=== PATIENT | female | born 1985 | race African-American/Black ===

== ENCOUNTER 2024-06-06 03:20 | Inpatient (IN) | payer SELFPAY ==
[2024-06-06 03:29] VITALS: BMI 47.7
[2024-06-06] MEDS: HYDROmorphone HCl 2 MG/ML VIAL IM ONE ×4 (04:20→12:59)
[2024-06-06] MEDS ORDERED: HYDROmorphone HCL CARPU-JECT 2 MG/1 ML DISP.SYRIN ONE ×4 (04:21→12:33)
[2024-06-06 06:21] LABS: EPI CELLS >36 /uL (0-25.1); HYALINE CASTS 8 /uL (0-3.1); URINE APPEARANCE CLOUDY; URINE BACTERIA 712 /uL (0-1359); URINE BILIRUBIN NEGATIVE (NEGATIVE); URINE COLOR YELLOW; URINE GLUCOSE (UA) 3+ (NEGATIVE); URINE KETONE TRACE (NEGATIVE); URINE LEUK ESTERASE NEGATIVE (NEGATIVE); URINE NITRITE NEGATIVE (NEGATIVE); URINE PROTEIN 3+ (NEGATIVE); URINE RBC 4 /uL (0-23.9); URINE UROBILINOGEN 0.2 mg/dL (0.2-1.0); URINE WBC 43 /uL (0-25.8)
[2024-06-06] MEDS: CEFPODOXIME PROXETIL 100 MG TABLET PO ONE (09:14)
[2024-06-06] MEDS ORDERED: KETOROLAC TROMETHAMINE 30 MG/1 ML VIAL ONE (09:35)
[2024-06-06] MEDS: KETOROLAC TROMETHAMINE 30 MG/1 ML VIAL IM ONE (09:37)
[2024-06-06 12:18] LABS: BASO % 1.2 % (0-2.0); EOS % 2.5 % (0-4.5); HEMATOCRIT 31.1 % (32.4-45.2); LYMPH % 41.9 % (8-40); MCH 26.4 pg (25.7-33.7); MCHC 32.2 g/dl (32.0-36.0); MEAN PLT VOLUME 9.2 fl (7.5-11.1); MONO % 9.6 % (3.8-10.2); NEUT % 44.8 % (42.8-82.8); PLATELET COUNT 446 10^3/uL (134-434); RDW 17.7 % (11.6-15.6); RETICULOCYTES 2.29 % (0.5-1.5); WHITE BLOOD COUNT 10.6 K/mm3 (4.0-10.0)
[2024-06-06 12:32] LABS: POTASSIUM 4.1 mmol/L (3.5-5.1)
[2024-06-06 12:34] LABS: ALBUMIN 3.6 g/dl (3.4-5.0); CALCIUM 9.8 mg/dL (8.5-10.1)
[2024-06-06 12:38] LABS: CREATININE 3.8 mg/dL (0.55-1.3)
[2024-06-06 12:39] LABS: BILIRUBIN,TOTAL 0.3 mg/dL (0.2-1); TOT PROT 9.1 g/dl (6.4-8.2)
[2024-06-06 12:41] LABS: ACTIVATED PTT 27.8 SECONDS (25.2-36.5); INR 1.1 (0.83-1.09); PROTHROMBIN TIME (PATIENT) 12.6 SEC (9.7-13.0)
[2024-06-06] MEDS: ONDANSETRON *ODT* 4 MG TABLET SL ONE (12:48)
[2024-06-06] MEDS ORDERED: ONDANSETRON *ODT* 4 MG TABLET ONE (12:48)
[2024-06-06] MEDS ORDERED: diphenhydrAMINE HCL 12.5 MG/5 ML UNIT-DOSE CUPS ONE (12:48)
[2024-06-06] MEDS: HYDROmorphone HCl 2 MG/ML VIAL IVPUSH ONE (13:08)
[2024-06-06] MEDS ORDERED: ACETAMINOPHEN 325 MG TABLET (FP) PO PRN (15:05)
[2024-06-06] MEDS ORDERED: ACETAMINOPHEN 500 MG TABLET (FP) PO PRN (16:21)
[2024-06-06] MEDS ORDERED: HYDROmorphone HCL CARPU-JECT 2 MG/1 ML DISP.SYRIN IM ONE (17:12)
[2024-06-06] MEDS: INSULIN ASPART SLIDING SCALE (NOVOLOG) 1 VIAL SQ SCH (17:39)
[2024-06-06] MEDS ORDERED: HYDROmorphone HCl 2 MG/ML VIAL IM PRN (17:57)
[2024-06-06] MEDS ORDERED: HYDROmorphone HCL CARPU-JECT 2 MG/1 ML DISP.SYRIN IVPB ONE (18:00)
[2024-06-06] MEDS ORDERED: DOCUSATE SODIUM 100 MG CAPSULE (FP) PO PRN (18:31)
[2024-06-06] MEDS: HYDROmorphone HCL CARPU-JECT 2 MG/1 ML DISP.SYRIN IVPB PRN (18:40)
[2024-06-06] MEDS: HYDROXYUREA 500 MG CAPSULE PO SCH (21:23)
[2024-06-06] MEDS: diphenhydrAMINE HCL 25 MG CAPSULE (FP) PO ONE (21:23)
[2024-06-06] MEDS: HEPARIN NA (PORCINE) 5,000 UNITS/ML 1ML VIAL SQ SCH (21:24)
[2024-06-06] MEDS: SODIUM CHLORIDE 1,000 ML IV SCH (21:24)
[2024-06-06 22:05] VITALS: RESP 18
[2024-06-07] MEDS: KETOROLAC TROMETHAMINE 30 MG/1 ML VIAL IVPUSH ONE (06:19)
[2024-06-07 10:09] LABS: BASO % 0.7 % (0-2.0); EOS % 6.7 % (0-4.5); HEMATOCRIT 27.5 % (32.4-45.2); LYMPH % 44.8 % (8-40); MCH 26.5 pg (25.7-33.7); MCHC 32.6 g/dl (32.0-36.0); MEAN CELL VOLUME 81.1 fl (80-96); MEAN PLT VOLUME 8.8 fl (7.5-11.1); MONO % 8.4 % (3.8-10.2); NEUT % 39.4 % (42.8-82.8); PLATELET COUNT 333 10^3/uL (134-434); RBC 3.39 M/mm3 (3.60-5.2); RDW 17.4 % (11.6-15.6)
[2024-06-07 10:13] LABS: INR 1.12 (0.83-1.09); PROTHROMBIN TIME (PATIENT) 12.6 SEC (9.7-13.0)
[2024-06-07 10:26] LABS: POTASSIUM 4.5 mmol/L (3.5-5.1)
[2024-06-07 10:32] LABS: CALCIUM 8.5 mg/dL (8.5-10.1)
[2024-06-07 10:33] LABS: BLOOD UREA NITROGEN 65.8 mg/dL (7-18); MAGNESIUM 2.1 mg/dL (1.8-2.4)
[2024-06-07 10:35] LABS: PHOSPHOROUS 6.2 mg/dL (2.5-4.9)
[2024-06-07 10:36] LABS: CREATININE 5.7 mg/dL (0.55-1.3)
[2024-06-07 10:37] LABS: BILIRUBIN,TOTAL 0.2 mg/dL (0.2-1); TOT PROT 7.8 g/dl (6.4-8.2)
[2024-06-07] MEDS ORDERED: HYDROmorphone HCL CARPU-JECT 2 MG/1 ML DISP.SYRIN IVPB PRN ×2 (11:22→12:28)
[2024-06-07 14:00] VITALS: BP 126/75; PULSE 95; TEMP 98.1
== END 2024-06-07 18:04 | disposition left against medical advice (07) | DRG 662 ==
LOC: JER 03:20 → JERBED 12:42 → OBSVTOIN 15:06 → J7W 15:37
PROVIDERS: ADMIT Student in an Organized Health Care Education/Training Program; ATTEND Internal Medicine
DX: D57.00 Hb-SS disease with crisis, unspecified (principal); E66.01 Morbid (severe) obesity due to excess calories; Z68.42 Body mass index [BMI] 45.0-49.9, adult; N17.9 Acute kidney failure, unspecified
CPT/HCPCS: 36415; 71046-TC-FY; 76775-TC; 80053; 81003; 82570; 82962; 83036; 83735; 84100; 84300; 84703; 85025; 85045; 85610; 85730; 86850; 86900; 86901; 87086; 93005; 93010; 99285-25; G0378; J1644; J8999; Q0162